=== PATIENT | male | born 2000 | race Hispanic/Latino ===

== ENCOUNTER 2023-05-17 10:26 | Inpatient (IN) | payer OTHER ==
[~2023-05-17] VITALS: Ht 167.6 cm; Wt 59.1 kg
[2023-05-17 10:58] LABS: HEMATOCRIT 47.4 % (42.0-52.0); MEAN CORPUSCULAR HEMOGLOBIN 31.8 pg (27.0-33.0); MEAN CORPUSCULAR HGB CONC 35.9 g/dl (32.0-36.5); MEAN CORPUSCULAR VOLUME 88.6 fl (80.0-96.0); PLATELET COUNT, AUTOMATED 338 10^3/uL (150-450); RED BLOOD COUNT 5.35 10^6/uL (4.30-6.10); WHITE BLOOD COUNT 7.5 10^3/uL (4.0-10.0)
[2023-05-17 11:25] LABS: ETHYL ALCOHOL (ETHANOL) < 0.003 % (0.000-0.010)
[2023-05-17 11:27] LABS: ALBUMIN 4.7 G/DL (3.2-5.2); ALKALINE PHOSPHATASE 91 U/L (46-116); ALT/SGPT 33 U/L (7.0-40); AST/SGOT 32 U/L (<34); BILIRUBIN,DIRECT 0.3 MG/DL (<0.4); BLOOD UREA NITROGEN 17 MG/DL (9-23); CALCIUM LEVEL 9.5 MG/DL (8.5-10.1); CARBON DIOXIDE LEVEL 30 MMOL/L (20-31); CHLORIDE LEVEL 103 MMOL/L (98-107); GLUCOSE, FASTING 77 MG/DL (60-100); SALICYLATE LEVEL < 3.0 MG/DL (<30); SODIUM LEVEL 138 MMOL/L (136-145); TOTAL PROTEIN 7.6 G/DL (5.7-8.2)
[2023-05-17] MEDS ORDERED: ACETAMINOPHEN TAB 650MG DOSE (2X325MG) PO PRN (14:25)
[2023-05-17] MEDS ORDERED: diphenhydrAMINE 25MG CAP PO PRN (14:25)
[2023-05-17] MEDS ORDERED: IBUPROFEN 400MG TAB PO PRN (14:25)
[2023-05-17] MEDS ORDERED: MOM 30ML SUSPENSION UDC PO PRN (14:25)
[2023-05-17] MEDS ORDERED: traZODone 50 MG TAB PO PRN (14:25)
[2023-05-17] MEDS ORDERED: MAALOX 30 ML SUSP *UDC PO PRN (14:25)
[2023-05-17 16:05] VITALS: BP 120/60; TEMP 97.9; O2SAT 100
[2023-05-17 16:36] LABS: AMPHETAMINES LEVEL URINE NEGATIVE (NEGATIVE); BARBITURATES URINE NEGATIVE (NEGATIVE); BENZODIAZEPINES URINE NEGATIVE (NEGATIVE); COCAINE METABOLITE URINE NEGATIVE (NEGATIVE); METHADONE URINE NEGATIVE (NEGATIVE); OPIATES URINE NEGATIVE (NEGATIVE); PHENCYCLIDINE URINE NEGATIVE (NEGATIVE)
[2023-05-17 16:38] LABS: CANNABINOIDS URINE POSITIVE (NEGATIVE)
[2023-05-17] MEDS ORDERED: HOME MED LIST COMPLETE! XX SCH (19:00)
[2023-05-18 06:29] VITALS: BP 126/58; TEMP 98.1; O2SAT 99
[2023-05-18 14:34] VITALS: BP 109/55; TEMP 97.1; O2SAT 99
[2023-05-18] MEDS: PRAZOSIN 1 MG CAP PO SCH (21:00)
[2023-05-19 06:22] VITALS: BP 108/54; TEMP 98.1; O2SAT 100
[2023-05-19 16:03] VITALS: BP 121/73; TEMP 98.2; O2SAT 99
[2023-05-20 06:31] VITALS: BP 112/56; TEMP 97.8; O2SAT 100
[2023-05-20 17:44] VITALS: BP 111/64; TEMP 98; O2SAT 99
[2023-05-21 06:34] VITALS: BP 123/64; TEMP 97.6; O2SAT 98
[2023-05-21 18:35] VITALS: BP 129/71; TEMP 97.5; O2SAT 99
[2023-05-22 06:49] VITALS: BP 147/72; TEMP 98.4; O2SAT 100
[2023-05-23 06:34] VITALS: BP 124/83; TEMP 97.7; O2SAT 100
== END 2023-05-23 13:12 | disposition home or self-care (01) | DRG 880 ==
LOC: M ED 10:26 → M ED INP 14:24 → M PSY 15:40
PROVIDERS: ADMIT Student in an Organized Health Care Education/Training Program; ATTEND Student in an Organized Health Care Education/Training Program
DX: F41.9 Anxiety disorder, unspecified (principal); U07.1 COVID-19; R45.851 Suicidal ideations; F32.A Depression, unspecified; F43.10 Post-traumatic stress disorder, unspecified; R94.6 Abnormal results of thyroid function studies